=== PATIENT | male | born 1960 | race Caucasian/White ===

== ENCOUNTER → 2017-03-19 | Outpatient (CLI) | payer BC ==
[~2017-03-19] MED LIST: ANALGESIC325 MG PO; Bactroban Nasal Oint NS; CLEOCIN300 MG PO; HIBICLENS118 ML TP
== END | disposition home or self-care (01) ==
LOC: CDC 13:43
DX: Z01.810 Encounter for preprocedural cardiovascular examination (principal); M51.26 Other intervertebral disc displacement, lumbar region; R94.31 Abnormal electrocardiogram [ECG] [EKG]
CPT/HCPCS: 93000